=== PATIENT | male | born 1955 | race Caucasian/White ===

== ENCOUNTER 2017-04-19 09:09 | Outpatient (CLI) | payer BC ==
[2017-04-19 10:21] LABS: Cardiac Risk 4.3 (Less than 4.5)
== END 2017-04-19 09:10 | disposition home or self-care (01) ==
LOC: BURLAB 09:09
PROVIDERS: ATTEND Internal Medicine Cardiovascular Disease
DX: E78.2 Mixed hyperlipidemia (principal); Z79.899 Other long term (current) drug therapy
CPT/HCPCS: 36415; 80061; 84450; 84460